=== PATIENT | female | born 1945 | race Caucasian/White ===

== ENCOUNTER → 2017-06-03 | Day surgery (SDC) | payer OTHER ==
[2017-05-25 08:28] VITALS: Ht 154.9 cm; Wt 91.4 kg
[~2017-06-03] VITALS: Ht 154.9 cm; Wt 91.4 kg
[~2017-06-03] MED LIST: ALEN70TA2 PO; ATROPINE SULFATE 0.1 MG/ML 5ML SYR IV PRN; B-COTAB18 PO; BUPIVACAINE/EPINEPHRINE 0.5% MPF 1:200,000 10 ML VIAL ONE; CALC600T9 PO; CLINDAMYCIN PHOS 150 MG/ML 2 ML VIAL IV SCH; CRS/10 PO; DOCU-94 PO; EpHEDrine SULFATE INJ 50 MG/ML AMP IV PRN; FENTANYL CITRATE INJ 50 MCG/1 ML 2 ML VIAL IV PRN; FENTANYL CITRATE INJ 50 MCG/1 ML 2 ML VIAL ONE; HYDR-5688 PO; HYDROCODONE/ACETAMOPHEN 5/325MG TAB PO PRN; LACTATED RINGER'S 1000ML 1,000 ML IV SCH; LIDOCAINE HCL 2% 2 ML VIAL (20MG/ML) ONE; LIDOCAINE/EPINEPHRINE 1% INJ 50 ML VIAL ONE; MIDAZOLAM HCL 1 MG/ML 2ML VIAL ONE; MIRA1TAB3 PO; NXM/40 PO; ONDANSETRON INJ 2 MG/ML 2 ML VIAL IV PRN; ONDANSETRON INJ 2 MG/ML 2 ML VIAL ONE; PRED-441 PO; PROPOFOL IV EMULSION 10 MG/ML 20 ML VIAL IV ONE; SODIUM CHLORIDE 0.9% 1000ML 1,000 ML IV SCH; VENL150C PO
--- NOTE | 2017-06-03 08:07 | History & Physical Bridge Note ---
H&P Re-Evaluation Bridge Note: I have examined the patient, reviewed the History & Physical and in the interval since the performance of the History & Physical I have noted the following changes of clinical significance: No changes noted
[2017-06-03 09:28] VITALS: BP_SYST 105; PULSE 85
--- NOTE | 2017-06-03 09:28 | Discharge Instructions-SurgCtr ---
Discharge Instructions Date of Service Jun 03, 2017. Visit Reason for Visit: Right Ring Trigger Finger Discharge Discharge Diagnosis / Problem: Right ring finger trigger digit Discharge Goals Goal(s): Decrease discomfort, Improve function, Increase independence Activity Recommendations Activity Limitations: per Instructions/Follow-up section Anesthesia . Post Anesthesia Instructions: If you have had General Anesthesia or IV Sedation: * Do not drive today. * Resume driving when surgeon permits. * Do not make important decisions or sign legal documents today. * Call surgeon for: 1. Temperature elevations greater than 101 degrees F. 2. Uncontrollable pain. 3. Excessive bleeding. 4. Persistent nausea and vomiting. 5. Medication intolerance (nausea, vomiting or rash). * For nausea and vomiting use only clear liquids such as: tea, soda, bouillon until nausea subsides, then gradually increase diet as tolerated. * If you have any concerns or questions, call your surgeon's office. If physician is unavailable and it is an emergency, call 911 or go to the nearest emergency room. . Instructions / Follow-Up Instructions / Follow-Up The following are instructions to follow after minor hand surgery. ACTIVITY RECOMMENDATIONS: * Minimize activity until your first visit after surgery. * No excessive walking, jogging, sports or laboring. * Return to activity is individualized. Most patients are able to return to everyday activities within 2 weeks. * Return to sports or intensive labor usually occurs at 1-2 months. * DRIVING: Driving may be resumed when you feel you have adequate pain control and use of the hand. * BATHING: You may shower or sponge-bathe immediately after surgery. The dressing will need to be covered with a plastic bag or plastic wrap until the dressing is changed on the fourth or fifth day after surgery. Once the dressing has been changed on the fourth or fifth day after surgery, you may shower and get the incision wet. * Wash with regular soap and water. * Do not bathe (submerge the incision), soak, swim or use a hot tub until the incision is completely healed over with normal skin and the doctor has given the OK to proceed. * There is no need to apply any ointments, powders or salves to your incision. * Do not apply alcohol or hydrogen peroxide directly to the incision. Diluted peroxide (50:50 mixture with sterile saline) may be used to clean dried blood from around the incision area. WORK/SCHOOL: * You may return to sedentary work or school when you are feeling comfortable. This is usually 3-7 days after surgery. * Expect increased discomfort with increased activity. Continue to elevate and ice the hand as much as possible. DIET: * Resume previous diet. MEDICATIONS: * You will have a prescription for pain medication and an anti-inflammatory medication after surgery. Use the pain pills for severe pain and the anti-inflammatory for less severe pain. * Once the pain pills have run out, try to use the anti-inflammatory. If this is not effective then contact the office for assistance. * The pain medication may cause nausea, constipation and sleepiness. You should see how they affect you before driving or similar activity. * The anti-inflammatory may cause stomach upset and bleeding. If this occurs, let your doctor know immediately . * Some patients may need blood clot prevention. This can be done with either a pill or a simple shot. Your doctor will advise you on when to begin these medications and how to take them. * Do not take aspirin or other anti-inflammatory products (i.e. Advil or Aleve ) if taking blood thinner medication. * Take a stool softener like Colace or a stimulant like Senokot to prevent constipation. SPECIAL CARE INSTRUCTIONS: ICE: * Do not apply ice directly to the skin. * Use a thin dressing or stockinet between the skin and ice bag. The dressing in place after surgery will suffice. * Apply ice for 20-30 minutes and repeat every 2-4 hours. This is especially important for the first 3-7 days after surgery. * Once the pain improves, use ice as needed. ELEVATION: * Keep your hand elevated at or above the level of your heart as much as possible. * Expect some increased discomfort and swelling if you allow your hand to hang down for any length of time. DRESSING: * Your dressing will be changed 4-5 days after surgery by the physical therapist or physician's assistant professor of business. Leave your dressing intact until this time. * You may then change your dressing daily with clean dry gauze or Band-aids and a soft wrap or stockinet. * Always wash your hands prior to touching the incision area. * Once the stitches are removed, you may leave the wound open to air or cover with a thin bandage. * There is no need to apply any ointments, powders or salves to your incision. * Expect some bloody drainage for the first few days after surgery. * Leave the tape strips in place (if present) for 5-7 days. * The initial dressing after surgery may become soaked with blood or fluid which is normal. You may reinforce your dressing with clean, dry gauze as needed. BRACE: * Bracing is generally not needed after routine hand surgery. THERAPY: * Physical therapy may be prescribed after your surgery. * For carpal tunnel and trigger digit surgery you may begin moving your fingers and wrist immediately after surgery as tolerated. * Be careful to not overuse. * Once the sutures are removed, further range of motion exercises can be performed. * Hand incisions may be very sensitive for a few months after surgery so avoid excessive pressure on the incision. If necessary, use a padded weightlifters' glove. * You may massage the incision with skin cream to make it less sensitive and reduce scarring. * Hand strength usually returns with normal use. * If needed, squeezing a soft sponge or Play-dough may help. * Your doctor will recommend physical therapy if necessary. PROBLEMS/QUESTIONS: * If you have any problems such as severe pain, numbness, tingling or high fevers or if you have any questions, please contact the office at [phone]. * It is not uncommon to have some numbness and tingling after the surgery especially if you have had a nerve block done. This should gradually improve over the first 1- 2 days. If this persists longer or worsens then contact the office. FOLLOW UP VISIT: * If not already scheduled, please call the office at to schedule follow-up appointments for approximately 10 days, 6 weeks and 3 months after surgery. * You have a follow-up appointment with Ericka Blanchard PA-C on 06/08/2017 at 1:30 PM * A follow-up appointment with Dr. Sweet on 06/15/2017 at 12:15 PM Diet Recommendations Home Diet: no limitations, resume previous diet Procedures Procedures Performed: Right Ring Trigger Finger Release Pending Studies Studies pending at discharge: no Medical Emergencies . Who to Call and When: Medical Emergencies: If at any time you feel your situation is an emergency, please call 911 immediately. . Non-Emergent Contact Non-Emergency issues call your: Surgeon Call Non-Emergent contact if: temperature is above 101, your pain is not controlled, wound has increased drainage, wound has increased redness . . "Provider Documentation" section prepared by Ericka Blanchard. . [place] Drug Monitoring Program Search Results: patient reviewed within database, no issues identified
--- NOTE | 2017-06-03 09:33 | [facility] Operative Report ---
Operative Report Operative Date Jun 03, 2017. Pre-Operative Diagnosis Right Ring Trigger Finger Post-Operative Diagnosis Same Procedure(s) Performed Right Ring Trigger Finger Release Surgeon Dr. Jay Sweet Microbiology Technologist Surgeon(s) Ericka Blanchard PA-C Estimated Blood Loss 0 Findings Right ring finger trigger digit Specimens None Drains None Anesthesia Local with IV sedation Complication(s) None Disposition Recovery Room / PACU (stable) Indications The patient is a 71-year-old female who presented to the office with complaints of right ring finger trigger digit. She had locking and catching. Clicking of her finger. It was causing pain. She failed conservative treatment which included injections. She wished to proceed with surgery. Bursa complications of surgery were discussed. Informed consent was obtained. X-rays were taken of her right ring finger and showed no acute bony abnormality. Description of Procedure Patient was taken to the operating room and placed under IV sedation and given local injection of the right fourth finger. Time out was performed. She was given Cleocin 600 mg IV preoperatively for surgical prophylaxis. She was prepped and draped in routine sterile fashion. I was present during the entire case, please see Dr. Sweet's operative report for further detail. She was awakened and taken to the recovery room in stable condition. I attest to the content of the Intraoperative Record and any orders documented therein. Any exceptions are noted below.
--- NOTE | 2017-06-03 09:37 | [facility] Operative Report ---
Operative Report Operative Date Jun 03, 2017. Pre-Operative Diagnosis Right Ring Trigger Finger Post-Operative Diagnosis Same Procedure(s) Performed Right Ring Trigger Finger Release Surgeon Dr. Leonardo Sweet Rod Pointer Surgeon(s) Megan Blanchard PA-C Estimated Blood Loss 0 Findings Thickened A1 rodger. Teno synovitis. Fraying of the flexor digitorum superficialis. Specimens None Drains none Anesthesia local with IV sedation Complication(s) None Disposition Recovery Room / PACU Implants None Indications The patient's a 71-year-old female with a symptomatic ring finger trigger digit on her right hand Description of Procedure Informed consent was obtained. The patient identified as Patricia Musa. She identified the operative site as the right hand ring finger. I marked with my initials. Preoperative surgical timeout was performed. Preoperative dose of IV antibiotics given. She was taken to the operating room and positioned supine on the hospital stretcher. The right arm suspended on a hand table. A tourniquet was applied to the right arm. The preoperative examination demonstrated active triggering and a palpable nodule at the level of the distal palmar crease of the right ring finger. It was full range of motion and otherwise unremarkable. Local anesthetic was performed with lidocaine and half percent Marcaine both with epinephrine. Right upper extremity was prepped and draped in usual sterile fashion DVT prophylaxis is not indicated. The limb was exsanguinated with the Esmarch. The tourniquet inflated to turn 25 mmHg. A transverse incision was made at the level of the distal palmar crease overlying the ring finger ray. Blunt dissection is performed in the midline of the tendon through the superficial fat and fascia down to the level of the flexor tendon sheath. The entrance of the A1 rodger was identified and the A1 rodger was fully released. It was noted to be thickened. There was tenosynovitis of the tendon which was debrided. When the tendon was brought into the field with finger flexion fraying on the anterior surface of the tendon was noted. This was debrided. Initially there was a tendency for the finger to re-catch however after debriding the tenosynovium and frayed tendon this was largely relieved although there was a slight click present. Less than 10% of the tendon volume was frayed and debrided. I ensured that the A1 rodger was completely released. The wounds are irrigated and closed with 4-0 nylon interrupted horizontal mattress stitches. A soft sterile dressing was applied the patient was awakened from anesthesia without difficulty taken to the recovery room in stable condition. The tourniquet was let down at the conclusion operation after approximately 20 minutes of inflation. There were no specimens or complications. Counts are correct in the case. Blood loss was minimal. At the conclusion operation I spoke patient's informed him of my findings. Postoperative instructions were given. She will be rehabilitated according to the trigger finger protocol. She'll be in for dressing change next week. I attest to the content of the Intraoperative Record and any orders documented therein. Any exceptions are noted below.
--- NOTE | 2017-06-03 10:07 | Anesthesia Progress Nt - [facility] ---
Anesthesia Post Op Note Date & Time Jun 03, 2017 at 10:07 Vital Signs Pain Intensity: 0 Vital Signs Past 12 Hours Date Time Temp Pulse Resp B/P (MAP) Pulse Ox O2 Delivery O2 Flow Rate FiO2 06/03/17 09:28 85 12 105/ (35) 06/03/17 08:01 36.7 82 22 127/73 (91) 96 Room Air Notes Mental Status: alert / awake / arousable, participated in evaluation Pt Amnestic to Procedure: Yes Nausea / Vomiting: adequately controlled Pain: adequately controlled Airway Patency, RR, SpO2: stable & adequate BP & HR: stable & adequate Hydration State: stable & adequate Anesthetic Complications: no major complications apparent
== END | disposition home or self-care (01) ==
LOC: X.SURG 07:50
PROVIDERS: ATTEND Physical Medicine & Rehabilitation Sports Medicine
DX: M65.341 Trigger finger, right ring finger (principal); I10 Essential (primary) hypertension; E78.00 Pure hypercholesterolemia, unspecified; R73.03 Prediabetes; K21.9 Gastro-esophageal reflux disease without esophagitis; G47.30 Sleep apnea, unspecified; R32 Unspecified urinary incontinence; Z79.899 Other long term (current) drug therapy